=== PATIENT | female | born 1990 | race Caucasian/White ===

== ENCOUNTER 2017-07-11 10:37 | Emergency (ER) | payer SELFPAY ==
[2017-07-11 10:57] VITALS: BP 106/74
[2017-07-11] MEDS ORDERED: TETRACAINE HCL 0.5% OPH SOLN 2 ML OS ONE (11:04)
--- NOTE | 2017-07-11 11:05 | ER Document Report ---
HPI - HPI Patient complains to provider of: eye injury Onset: Just prior to arrival Onset/Duration: Sudden Quality of pain: Burning Pain Level: 3 Context: Patient states that her dog accidentally scratched her left eye today. Patient denies any use of contact lenses or glasses. Patient complains of blurred vision and tearing to her left eye. Patient states she is currently taking Augmentin to treat his sinus infection and has several days of antibiotic left to take. Patient also reports that her tetanus immunization is currently up-to- date. Associated Symptoms: Other - eye injury. denies: Fever Exacerbated by: Denies Relieved by: Denies Similar symptoms previously: No Recently seen / treated by doctor: Yes - Treatment for sinus infection - ROS ROS below otherwise negative: Yes Systems Reviewed and Negative: Yes All other systems reviewed and negative - CONSTITUTIONAL Constitutional: DENIES: Fever - EENT EENT: REPORTS: Eye problems - GASTROINTESTINAL Gastrointestinal: DENIES: Nausea, Patient vomiting - DERM Skin Color: Normal Skin Problems: None Past Medical History - General Information source: Patient - Social History Smoking Status: Never Smoker Frequency of alcohol use: None Drug Abuse: None Occupation: None Lives with: Family Family History: Reviewed & Not Pertinent Pulmonary Medical History: Reports: Hx Asthma Psychiatric Medical History: Reports: Hx Depression Surgical Hx: Negative Vertical Provider Document - CONSTITUTIONAL Agree With Documented VS: Yes Exam Limitations: No Limitations General Appearance: WD/WN - INFECTION CONTROL TRAVEL OUTSIDE OF THE [place] IN LAST 30 DAYS: No - HEENT HEENT: Normocephalic Notes: Patient with corneal abrasion overlying left eye. no foreign body, no corneal ulcer, or dendrite. Extraocular movements intact. Sclera mildly injected with tearing. - NECK Neck: Normal Inspection - RESPIRATORY Respiratory: No Respiratory Distress - MUSCULOSKELETAL/EXTREMETIES Musculoskeletal/Extremeties: MAEW - NEURO Level of Consciousness: Awake, Alert, Appropriate Motor/Sensory: No Motor Deficit - DERM Integumentary: Warm, Dry Course - Vital Signs Vital signs: Temp Pulse Resp BP Pulse Ox 98.1 F 83 16 106/74 100 07/11/17 10:52 07/11/17 10:52 07/11/17 10:52 07/11/17 10:52 07/11/17 10:52 Discharge - Discharge Clinical Impression: Corneal abrasion, left Qualifiers: Encounter type: initial encounter Qualified Code(s): S05.02XA - Injury of conjunctiva and corneal abrasion without foreign body, left eye, initial encounter Condition: Stable Disposition: HOME, SELF-CARE Instructions: Corneal Abrasion ([facility]) Additional Instructions: Return immediately for any new or worsening symptoms Followup with your primary care provider, call tomorrow to make a followup appointment Follow-up with director of anesthesia services for recheck, call today for an appointment Prescriptions: Erythromycin Base [Erythromycin] 1 applic OP QID #3.5 oint..gm. Naproxen [Naprosyn 250 Nmg Tablet] 1 tab PO BID #14 tablet Referrals: JAMES BRICEÑO FNP-C [Primary Care Provider] - Follow up as needed [facility] [Provider Group] - Follow up tomorrow
== END 2017-07-11 11:48 | disposition home or self-care (01) ==
LOC: ER 10:37
DX: S05.02XA Injury of conjunctiva and corneal abrasion without foreign body, left eye, initial encounter (principal); H53.8 Other visual disturbances; W50.4XXA Accidental scratch by another person, initial encounter; J45.909 Unspecified asthma, uncomplicated
CPT/HCPCS: 99283

== ENCOUNTER 2017-08-25 02:38 | Emergency (ER) | payer OTHER ==
[2017-08-25 02:47] VITALS: BP 109/68
[2017-08-25] MEDS ORDERED: ONDANSETRON 4 MG TAB.RAPDIS PO ONE (02:50)
[2017-08-25 03:19] LABS: ABSOLUTE EOSINOPHILS # (AUTO) 0.1 10^3/uL (0.0-0.6); ABSOLUTE LYMPHOCYTES (AUTO) 2.5 10^3/uL (0.5-4.7); ABSOLUTE MONOCYTES (AUTO) 0.7 10^3/uL (0.1-1.4); ABSOLUTE NEUT (AUTO) 2.6 10^3/uL (1.7-8.2); BASOPHILS % (AUTO) 0.4 % (0-2); EOSINOPHILS % (AUTO) 2.4 % (0-6); HEMATOCRIT 40.3 % (36.0-47.0); HEMOGLOBIN 13.8 g/dL (12.0-15.5); LYMPHOCYTES % (AUTO) 42.3 % (13-45); MEAN CORPUSCULAR HGB CONC 34.2 g/dL (32.0-36.0); MEAN CORPUSCULAR VOLUME 91 fl (80-97); MONOCYTES % (AUTO) 11.4 % (3-13); PLATELET COUNT 237 10^3/uL (150-450); RED BLOOD COUNT 4.44 10^6/uL (3.72-5.28); RED CELL DISTRIBUTION WIDTH 13.3 % (11.5-14.0); SEGMENTED NEUTROPHILS % (AUTO) 43.5 % (42-78); TOTAL CELLS COUNTED % (AUTO) 100 %; WHITE BLOOD COUNT 5.9 10^3/uL (4.0-10.5)
[2017-08-25 03:20] LABS: ALANINE AMINOTRANSFERASE 26 U/L (9-52); ALBUMIN 4.1 g/dL (3.5-5.0); ALKALINE PHOSPHATASE 55 U/L (38-126); ANION GAP 13 (5-19); ASPARTATE AMINO TRANSFERASE 20 U/L (14-36); BILIRUBIN,DIRECT 0.2 mg/dL (0.0-0.4); BILIRUBIN,TOTAL 0.2 mg/dL (0.2-1.3); BLOOD UREA NITROGEN 11 mg/dL (7-20); CARBON DIOXIDE 24 mmol/L (22-30); CHLORIDE 108 mmol/L (98-107); GLUCOSE 91 mg/dL (75-110); LIPASE 125.8 U/L (23-300); POTASSIUM 3.9 mmol/L (3.6-5.0); SODIUM 144.8 mmol/L (137-145); TOTAL PROTEIN 6.6 g/dL (6.3-8.2)
[2017-08-25] MEDS ORDERED: ONDANSETRON HCL INJ/PF 4 MG/2 ML SDV IV ONE (03:28)
[2017-08-25] MEDS ORDERED: NORMAL SALINE 1000 ML 1,000 ML IV ONE (03:28)
[2017-08-25] MEDS ORDERED: KETOROLAC TROMETHAMINE INJ/PF 30 MG/1 ML SDV IV ONE (03:28)
--- NOTE | 2017-08-25 03:31 | ER Document Report ---
ED GI/ - General Chief Complaint: Abdominal Pain Stated Complaint: ABDOMINAL PAIN Time Seen by Provider: 08/25/17 03:21 Notes: Patient is a 27-year-old female who comes emergency department for chief complaint of sharp mid abdominal pain. She states that she gets frequent abdominal pain, has frequent diarrhea, occasionally will have blood in her stool although not with the most recent bowel movements. No fever, no vomiting , pain. No vaginal bleeding. She states that she is referred to gastroenterology and she is going next week. She was told that she has either IBS or Crohn's, has not been on steroids for this. She denies any surgeries. Past medical history of asthma, anxiety, depression. TRAVEL OUTSIDE OF THE [place] IN LAST 30 DAYS: No - Related Data Allergies/Adverse Reactions: No Known Allergies Allergy (Verified 07/11/17 10:45) Past Medical History - General Information source: Patient - Social History Smoking Status: Never Smoker Frequency of alcohol use: None Drug Abuse: None Lives with: Family Family History: Reviewed & Not Pertinent Pulmonary Medical History: Reports: Hx Asthma Renal/ Medical History: Denies: Hx Peritoneal Dialysis Psychiatric Medical History: Reports: Hx Anxiety, Hx Depression Review of Systems - Review of Systems Constitutional: No symptoms reported EENT: No symptoms reported Cardiovascular: No symptoms reported Respiratory: No symptoms reported Gastrointestinal: See HPI Genitourinary: No symptoms reported Female Genitourinary: No symptoms reported Musculoskeletal: No symptoms reported Skin: No symptoms reported Hematologic/Lymphatic: No symptoms reported Neurological/Psychological: No symptoms reported Physical Exam - Vital signs Vitals: Temp Pulse Resp BP Pulse Ox 98.7 F 93 18 109/68 100 08/25/17 02:46 08/25/17 02:46 08/25/17 02:46 08/25/17 02:46 08/25/17 02:46 - Notes Notes: GENERAL: Alert, interacts well. No acute distress. HEAD: Normocephalic, atraumatic. EYES: Pupils equal, round, and reactive to light. Extraocular movements intact. ENT: Oral mucosa very dry, tongue midline. NECK: Full range of motion. Supple. Trachea midline. LUNGS: Clear to auscultation bilaterally, no wheezes, rales, or rhonchi. No respiratory distress. HEART: Regular rate and rhythm. No murmur ABDOMEN: There is some mild tenderness in the mid abdomen, no specific tenderness, no guarding, no rigidity, no distention, no rebound tenderness. Bowel sounds present in all 4 quadrants. EXTREMITIES: Moves all 4 extremities spontaneously. No edema, normal radial and dorsalis pedis pulses bilaterally. No cyanosis. BACK: no cervical, thoracic, lumbar midline tenderness. No saddle anesthesia, normal distal neurovascular exam. NEUROLOGICAL: Alert and oriented x3. Normal speech. [cranial nerves II through XII grossly intact]. PSYCH: Normal affect, normal mood. SKIN: Warm, dry, normal turgor. No rashes or lesions noted. Old scars from cutting on the left forearm Course - Re-evaluation Re-evalutation: Patient is thin but is not in any distress. She has mild lower abdominal tenderness on exam, no guarding or rebound tenderness. Unremarkable vital signs. CBC unremarkable, chemistry unremarkable, urinalysis contaminated but also shows a large amount of leukocyte esterase. She does have suprapubic tenderness. Pelvic exam was discussed but deferred. No flank pain, fever, vomiting. Discussed with patient, decision was made to cover her with Keflex because of the urine and her lower abdominal tenderness. Also discussed with patient and I decided to give her dexamethasone for suspected Crohn's symptoms. Pending gastroenterology follow-up in a few days. Low suspicion of acute abdomen. Patient tolerating p.o. without any difficulty. Given carolyn yadira. Discussed return precautions, patient states understanding and agreement. - Vital Signs Vital signs: Temp Pulse Resp BP Pulse Ox 98.7 F 93 18 109/68 100 08/25/17 02:46 08/25/17 02:46 08/25/17 02:46 08/25/17 02:46 08/25/17 02:46 - Laboratory Result Diagrams: 08/25/17 03:05 08/25/17 03:05 Laboratory results interpreted by me: 08/25/17 08/25/17 03:05 03:10 Chloride 108 H Ur Leukocyte Esterase LARGE H Discharge - Discharge Clinical Impression: Abdominal pain Qualifiers: Abdominal location: generalized Qualified Code(s): R10.84 - Generalized abdominal pain Condition: Stable Disposition: HOME, SELF-CARE Additional Instructions: Your laboratory workup does not show any concerning antibodies. We are covering you for possible urinary tract infection. You have been medicated to help with symptoms of possible Crohn's pending your follow-up with gastroenterology. Please follow-up closely. Take Phenergan for nausea, continue Bentyl if needed for abdominal pain, stay hydrated. Return if you worsen including vomiting, large amount of blood in stool, worsening pain, passing out, fever of 100.4 or greater, or any other concerning or worsening symptoms. Prescriptions: Cephalexin Monohydrate [Keflex 500 mg Capsule] 500 mg PO BID #10 capsule Promethazine HCl [Phenergan 25 mg Tablet] 1 - 2 tab PO Q6H PRN #15 tablet PRN Reason: Referrals: TIMOTHY SALAZAR MD [ACTIVE STAFF] - Follow up in 3-5 days
[2017-08-25 03:36] LABS: AMORPHOUS SEDIMENT,URINE TRACE /HPF; APPEARANCE,URINE CLOUDY; BILIRUBIN,URINE NEGATIVE (NEGATIVE); GLUCOSE, URINE NEGATIVE (NEGATIVE); KETONES,URINE NEGATIVE (NEGATIVE); LEUKOCYTE ESTERASE,URINE LARGE (NEGATIVE); NITRITE,URINE NEGATIVE (NEGATIVE); PROTEIN,URINE NEGATIVE (NEGATIVE); UROBILINOGEN,URINE NEGATIVE mg/dL (<2.0)
[2017-08-25 03:37] LABS: COLOR,URINE DARK YELLOW
[2017-08-25] MEDS ORDERED: DEXAMETHASONE SOD PHOS INJ 10 MG/1 ML VIAL IV ONE (03:46)
[2017-08-25] MEDS ORDERED: CEPHALEXIN 500 MG CAPSULE PO ONE (03:46)
[2017-08-25] MEDS ORDERED: HYDROCODONE/ACETAMINOPHEN 5-325 MG (6 TAB/ER DISP) ONE (04:58)
== END 2017-08-25 05:03 | disposition home or self-care (01) ==
LOC: ER 02:38
DX: R10.84 Generalized abdominal pain (principal); R19.7 Diarrhea, unspecified; J45.909 Unspecified asthma, uncomplicated
CPT/HCPCS: 99284; 36415; 84702; 83690; 85025; 81025; 80053; 81001; J1885; J2405; J7030; J1100

== ENCOUNTER 2019-05-05 13:19 | Emergency (ER) | payer OTHER ==
[2019-05-05 13:24] VITALS: BP 107/76
--- NOTE | 2019-05-05 13:34 | ER Document Report ---
ED General - General Chief Complaint: Shoulder Pain Stated Complaint: RIGHT SHOULDER PAIN Primary Care Provider: JAMES BRICEÑO FNP-C [COMMUNITY BASED STAFF] - Follow up as needed Notes: Patient is a 29-year-old white female with a past medical history of depression, anxiety and PTSD who presents to the emergency department with a chief complaint of right shoulder pain. She states about 3 months ago she was walking her dog on a leash when he "took off" and caused her to catch her arm on a pole, pulling her shoulder. She states she was evaluated for that and sent to physical therapy. She states she has had some "nerve damage" in the right shoulder since. She admits since she stopped going to physical therapy she had a small tremor in the right hand. She states today she was hugging her when he pulled her tight and her right shoulder felt like it elevated forward more than it should. She was concerned it could be dislocated so she came for evaluation. She denies any worsening numbness or tingling. Denies any significant decrease in range of motion. Pain is worse with movement and better with rest. Denies any known deformity. No blunt trauma. Patient also adds a chronic winging of the scapula on the right. TRAVEL OUTSIDE OF THE [place] IN LAST 30 DAYS: No - Related Data Allergies/Adverse Reactions: No Known Allergies Allergy (Verified 05/05/19 13:26) Past Medical History - Social History Smoking Status: Never Smoker Family History: Reviewed & Not Pertinent Patient has suicidal ideation: No Patient has homicidal ideation: No Pulmonary Medical History: Reports: Hx Asthma Renal/ Medical History: Denies: Hx Peritoneal Dialysis Psychiatric Medical History: Reports: Hx Anxiety, Hx Depression Review of Systems - Review of Systems Musculoskeletal: Joint pain -: Yes All other systems reviewed and negative Physical Exam - Vital signs Vitals: Temp Pulse Resp BP Pulse Ox 98.2 F 63 14 107/76 100 05/05/19 13:23 05/05/19 13:23 05/05/19 13:23 05/05/19 13:23 05/05/19 13:23 - General General appearance: Appears well, Alert In distress: None - Respiratory Respiratory status: No respiratory distress Chest status: Nontender Breath sounds: Normal Chest palpation: Normal - Cardiovascular Rhythm: Regular Heart sounds: Normal auscultation - Extremities Shoulder: Other - Bilateral elevation of the distal clavicle at the AC joint, likely underlying chronic bilateral elevation. The right deltoid is tender to palpation as is the right acromion. Patient is full passive range of motion of the right shoulder however does wince in pain. 2+ radial on the right. Bingo Attendant strength 4 out of 5 on the right as compared with the left. No deformity. - Neurological Neuro grossly intact: Yes Cognition: Normal Orientation: AAOx4 [place] Coma Scale Eye Opening: Spontaneous [place] Coma Scale Verbal: Oriented [place] Coma Scale Motor: Obeys Commands [place] Coma Scale Total: 15 Speech: Normal - Psychological Associated symptoms: Normal affect, Normal mood - Skin Skin Temperature: Warm Skin Moisture: Dry Skin Color: Normal Course - Re-evaluation Re-evalutation: 05/05/19 14:05 X-rays negative for acute process per radiologist. Suspect possible shoulder sprain due to remote injury with intermittent subluxations. Patient will be placed in a sling and referred to orthopedics. Counseled her at length regarding the importance of outpatient follow-up and advised that she return here or any ER immediately with any new, persistent or worsening symptoms. She verbalized understood and agreed. - Vital Signs Vital signs: Temp Pulse Resp BP Pulse Ox 98.2 F 63 14 107/76 100 05/05/19 13:23 05/05/19 13:23 05/05/19 13:23 05/05/19 13:23 05/05/19 13:23 Discharge - Discharge Clinical Impression: Shoulder sprain Qualifiers: Encounter type: sequela Shoulder sprain type: unspecified sprain Laterality: right Qualified Code(s): S43.401S - Unspecified sprain of right shoulder joint, sequela Disposition: HOME, SELF-CARE Instructions: Shoulder Injury ([facility]), Exercise Program for the Shoulder ([facility]) Additional Instructions: Please follow-up with orthopedist as discussed follow-up with orthopedist as discussed and referred. Return here or any ER immediately with any new, persistent or worsening symptoms. Prescriptions: Ketorolac Tromethamine [Toradol 10 mg Tablet] 10 mg PO Q8HP PRN #24 tablet PRN Reason: Referrals: JAMES BRICEÑO, [facility] [COMMUNITY BASED STAFF] - Follow up as needed SAMREEN BARRIENTOS JR, [ACTIVE PROVISIONAL STAFF] - Follow up as needed
--- NOTE | 2019-05-05 13:54 | RADIOLOGY REPORT (SQ) ---
EXAM DESCRIPTION: SHOULDER RIGHT 2 OR MORE VIEWS IMAGES COMPLETED DATE/TIME: 05/05/2019 1:38 pm REASON FOR STUDY: pain COMPARISON: None. NUMBER OF VIEWS: Three views. TECHNIQUE: Internal rotation, external rotation, and Y view images acquired of the right shoulder. LIMITATIONS: None. FINDINGS: MINERALIZATION: Normal. BONES: No acute fracture. No worrisome bone lesions. JOINTS: No glenohumeral dislocation. No acromioclavicular joint widening VISUALIZED LUNGS AND RIBS: No pneumothorax. No rib fracture. SOFT TISSUES: No radiopaque foreign body. OTHER: No other significant finding. IMPRESSION: NEGATIVE STUDY OF THE RIGHT SHOULDER. NO RADIOGRAPHIC EVIDENCE OF ACUTE INJURY. TECHNICAL DOCUMENTATION: JOB ID: [id number] 2010 [employer]- All Rights Reserved Reading location - IP/workstation name: [email or web address]
== END 2019-05-05 14:15 | disposition home or self-care (01) ==
LOC: ER 13:19
DX: M25.511 Pain in right shoulder (principal); S43.401S Unspecified sprain of right shoulder joint, sequela; X58.XXXS Exposure to other specified factors, sequela
CPT/HCPCS: 99283